=== PATIENT | female | born 1935 | race Caucasian/White ===

== ENCOUNTER 2018-09-09 08:37 | Day surgery (SDC) | payer OTHER ==
[~2018-09-09 08:37] MED LIST: ASPI81EC97 PO; IBUP-2213; LASIX 20 MG; SULF-59
[2018-09-09] MEDS ORDERED: fentaNYL 0.05 MG/ML VIAL ONE (10:46)
[2018-09-09] MEDS ORDERED: MIDAZOLAM 2 MG/2 ML VIAL ONE (10:46)
== END 2018-09-09 12:05 | disposition home or self-care (01) ==
LOC: MDS 08:37 → MMU 08:44 → MDS 12:05
PROVIDERS: ATTEND Internal Medicine Gastroenterology
DX: K22.2 Esophageal obstruction (principal); K29.40 Chronic atrophic gastritis without bleeding; K21.9 Gastro-esophageal reflux disease without esophagitis; I10 Essential (primary) hypertension; G43.909 Migraine, unspecified, not intractable, without status migrainosus; M19.90 Unspecified osteoarthritis, unspecified site; F15.90 Other stimulant use, unspecified, uncomplicated; Z79.82 Long term (current) use of aspirin; Z79.899 Other long term (current) drug therapy; Z98.49 Cataract extraction status, unspecified eye
CPT/HCPCS: 36415; 43239; 86677; J2250; J7030; J3010